=== PATIENT | female | born 1945 | race Caucasian/White ===

== ENCOUNTER 2016-09-21 06:41 | Emergency (ER) | payer MEDICARE ==
[~2016-09-21] VITALS: Ht 170.2 cm; Wt 80.0 kg
[~2016-09-21 06:41] MED LIST: ESTR1TAB PO; RANI300T PO
[2016-09-21 06:55] VITALS: BP 134/67; PULSE 104; RESP 16; TEMP 98.9; O2SAT 93
[2016-09-21] MEDS ORDERED: RANI300T PO (07:12)
[2016-09-21] MEDS ORDERED: ESTR1TAB PO (07:12)
[2016-09-21 07:36] VITALS: BP 119/89; PULSE 99; RESP 18; O2SAT 95
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
--- NOTE | 2016-09-21 08:12 | RADHPO ---
EXAM DATE/TIME: 09/21/2016 07:41 [facility] COMPARISON: No previous studies available for comparison. INDICATIONS : Cough, fever MEDICAL HISTORY : None. SURGICAL HISTORY : None. ENCOUNTER: Initial ACUITY: 4 - 6 days PAIN SCORE: 0/10 LOCATION: Bilateral chest FINDINGS: PA and lateral views of the chest demonstrate the lungs to be symmetrically aerated without evidence of mass, infiltrate or effusion. The cardiomediastinal contours are unremarkable. Osseous structure s are intact. CONCLUSION: Normal examination. Clotilde Marmolejo MD on September 21, 2016 at 8:10 Board Certified Radiologist. This report was verified electronically.
== END 2016-09-21 08:30 | disposition home or self-care (01) ==
LOC: PHED 06:41
DX: J06.9 Acute upper respiratory infection, unspecified (principal)
CPT/HCPCS: 71020; 87804; 99283

== ENCOUNTER 2017-02-13 12:31 | Emergency (ER) | payer OTHER, MEDICARE ==
[~2017-02-13] VITALS: Ht 170.2 cm; Wt 80.0 kg
[2017-02-13 12:33] VITALS: BP 153/72; PULSE 86; RESP 15; TEMP 98.2; O2SAT 95
[2017-02-13] MEDS ORDERED: ALPR.25 PO (13:04)
--- NOTE | 2017-02-13 14:16 | RADRPT ---
EXAM DATE/TIME: 02/13/2017 13:41 [facility] COMPARISON: No previous studies available for comparison. INDICATIONS : Posterior neck and left shoulder pain. RADIATION DOSE: 26.58 CTDIvol (mGy) MEDICAL HISTORY : None SURGICAL HISTORY : None. ENCOUNTER: Initial ACUITY: 4 - 6 days PAIN SCALE: 4/10 LOCATION: Left neck Posterior TECHNIQUE: Volumetric scanning of the cervical spine was performed. Multiplanar reconstructions in the sagittal, coronal and oblique axial planes were performed. Using automated exposure control and adjustment o f the mA and/or kV according to patient size, radiation dose was kept as low as reasonably achievable to obtain optimal diagnostic quality images. DICOM format image data is available electronically f or review and comparison. FINDINGS: Sagittal and coronal reformats demonstrate adequate alignment of the cervical vertebral bodies. There are degenerated disc at C5/6 and C6/7. There are mild degenerative changes in the atlantodens joint. No acute fracture is seen. C2-C3: The thecal space and neural foramina are adequate. There is moderate facet arthritis bilaterally. Thi s is more significant on the right than the left. C3-C4: There is a degenerated disc. There is facet arthritis bilaterally. The thecal space and foramina are adequate. C4-C5: There is a small broad-based disc bulge. There is moderate facet arthritis bilaterally. The thecal sp malcolm and neural foramina are adequate. C5-C6: There is a degenerated disc with a broad-based disc bulge. There is diffuse osteophytic ridging from the vertebral endplates. There is uncovertebral osteophyte encroaching upon the lateral recess bilate rally. The foramina are adequate. C6-C7: There is a small broad-based disc bulge. This just effaces the ventral thecal sac. The residual theca l space and foramina are adequate. C7-T1: The bony spinal canal is normal in size. No evidence of disc bulge or herniation. The neural forami na are bilaterally patent. CONCLUSION: 1. Degenerative changes as above. 2. No acute fracture the cervical spine identified. Denny Walters MD on February 13, 2017 at 14:11 Board Certified Radiologist. This report was verified electronically.
[2017-02-13] MEDS ORDERED: CYCL1TAB29 PO (14:39)
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
[2017-02-13 14:51] VITALS: BP 142/76
== END 2017-02-13 14:52 | disposition home or self-care (01) ==
LOC: PHEFT 12:31
DX: S16.1XXA Strain of muscle, fascia and tendon at neck level, initial encounter (principal); S29.012A Strain of muscle and tendon of back wall of thorax, initial encounter; Z86.59 Personal history of other mental and behavioral disorders; Z86.79 Personal history of other diseases of the circulatory system; Z87.19 Personal history of other diseases of the digestive system; V89.2XXA Person injured in unspecified motor-vehicle accident, traffic, initial encounter
CPT/HCPCS: 72125; 99284